=== PATIENT | female | born 1990 | race Caucasian/White ===

== ENCOUNTER → 2017-11-11 | Outpatient (REF) | payer OTHER ==
[2017-11-11 16:03] LABS: CHLAMYDIA DNA AMPLIFICATION NEGATIVE (NEGATIVE); GC DNA AMPLIFICATION NEGATIVE (NEGATIVE)
== END ==
LOC: M LAB REF 13:09
DX: Z34.82 Encounter for supervision of other normal pregnancy, second trimester (principal); Z3A.00 Weeks of gestation of pregnancy not specified
CPT/HCPCS: 87086

== ENCOUNTER → 2017-12-02 | Outpatient (CLI) | payer OTHER | LOC: M LRY 14:03 | DX: Z34.82 Encounter for supervision of other normal pregnancy, second trimester (principal) | CPT/HCPCS: 76811 ==

== ENCOUNTER → 2018-01-08 | Outpatient (CLI) | payer OTHER | LOC: M RAD 09:48 | DX: Z36.89 Encounter for other specified antenatal screening (principal); Z3A.22 22 weeks gestation of pregnancy | CPT/HCPCS: 76816 ==

== ENCOUNTER → 2018-02-06 | Outpatient (CLI) | payer OTHER ==
[2018-02-06 13:25] LABS: HEMATOCRIT 34.7 % (36.0-47.0); MEAN CORPUSCULAR HEMOGLOBIN 30.2 pg (27.0-33.0); MEAN CORPUSCULAR HGB CONC 34.6 g/dl (32.0-36.5); MEAN CORPUSCULAR VOLUME 87.4 fl (80.0-96.0); PLATELET COUNT, AUTOMATED 214 10^3/uL (150-450); RED BLOOD COUNT 3.97 10^6/uL (4.00-5.40); RED CELL DISTRIBUTION WIDTH 12.7 % (11.5-14.5); WHITE BLOOD COUNT 10.4 10^3/uL (4.0-10.0)
[2018-02-06 13:52] LABS: GLUCOSE CHALLENGE TEST 1 HOUR 155 MG/DL (LESS THAN 140)
== END ==
LOC: M SMT 10:55
DX: Z34.82 Encounter for supervision of other normal pregnancy, second trimester (principal); Z36.89 Encounter for other specified antenatal screening
CPT/HCPCS: 82950

== ENCOUNTER → 2018-02-11 | Outpatient (CLI) | payer OTHER ==
[2018-02-11 08:58] LABS: GLUCOSE, FASTING 83 MG/DL (LESS THAN 95)
[2018-02-11 10:08] LABS: 1 HR GLUCOSE 122 MG/DL (LESS THAN 180)
[2018-02-11 11:03] LABS: 2 HR GLUCOSE 94 MG/DL (LESS THAN 155)
[2018-02-11 11:57] LABS: 3 HR GLUCOSE 97 MG/DL (LESS THAN 140)
== END ==
LOC: M LAB 07:56
DX: Z36.89 Encounter for other specified antenatal screening (principal); O99.810 Abnormal glucose complicating pregnancy; Z3A.00 Weeks of gestation of pregnancy not specified
CPT/HCPCS: 82951

== ENCOUNTER 2018-03-20 06:21 | Outpatient (CLI) | payer OTHER | END 2018-03-20 09:07 | disposition home or self-care (01) | LOC: M LDO 06:21 | DX: O26.893 Other specified pregnancy related conditions, third trimester (principal); Z3A.33 33 weeks gestation of pregnancy; Z87.51 Personal history of pre-term labor | CPT/HCPCS: 76815 ==

== ENCOUNTER → 2018-03-26 | Outpatient (REF) | payer OTHER | LOC: M LAB REF 13:19 | DX: O09.213 Supervision of pregnancy with history of pre-term labor, third trimester (principal) ==

== ENCOUNTER → 2018-04-15 | Outpatient (CLI) | payer OTHER ==
[2018-04-15 13:45] LABS: HEMATOCRIT 33.9 % (36.0-47.0); HEMOGLOBIN 11.7 g/dl (12.0-15.5); MEAN CORPUSCULAR HEMOGLOBIN 30.1 pg (27.0-33.0); MEAN CORPUSCULAR HGB CONC 34.5 g/dl (32.0-36.5); MEAN CORPUSCULAR VOLUME 87.1 fl (80.0-96.0); PLATELET COUNT, AUTOMATED 238 10^3/uL (150-450); RED BLOOD COUNT 3.89 10^6/uL (4.00-5.40); RED CELL DISTRIBUTION WIDTH 13.6 % (11.5-14.5); WHITE BLOOD COUNT 12.4 10^3/uL (4.0-10.0)
[2018-04-15 14:01] LABS: ALT/SGPT 18 U/L (12-78); AST/SGOT 12 U/L (7-37); BILIRUBIN,TOTAL 0.3 MG/DL (0.2-1.0); CREATININE FOR GFR 0.53 MG/DL (0.55-1.30); GLOMERULAR FILTRATION RATE > 60.0 (>60); LDH LACTATE DEHYDROGENASE 190 U/L (84-246); URIC ACID 4.9 MG/DL (2.6-6.0)
== END ==
LOC: M SMT 09:29
DX: O13.3 Gestational [pregnancy-induced] hypertension without significant proteinuria, third trimester (principal)
CPT/HCPCS: 84460

== ENCOUNTER 2018-04-18 07:06 | Inpatient (IN) | payer OTHER ==
[2018-04-18] MEDS ORDERED: PENICILLIN G POTASSIUM IV 5 MU in D5W MINI-BAG PLUS 100 ML IV (08:30)
[2018-04-18] MEDS: PENICILLIN G POTASSIUM IV 5 MU in D5W MINI-BAG PLUS 100 ML IV (08:55)
[2018-04-18] MEDS: miSOPROStol 50 MCG 1/2 TAB (S0191) SL (08:55)
[2018-04-18] MEDS ORDERED: **PENDING PCN ENTRY XX (09:00)
[2018-04-18 09:09] LABS: HEMATOCRIT 32.8 % (36.0-47.0); HEMOGLOBIN 11.3 g/dl (12.0-15.5); MEAN CORPUSCULAR HEMOGLOBIN 29.3 pg (27.0-33.0); MEAN CORPUSCULAR HGB CONC 34.5 g/dl (32.0-36.5); PLATELET COUNT, AUTOMATED 237 10^3/uL (150-450); RED BLOOD COUNT 3.86 10^6/uL (4.00-5.40); RED CELL DISTRIBUTION WIDTH 13.4 % (11.5-14.5); WHITE BLOOD COUNT 12.1 10^3/uL (4.0-10.0)
[2018-04-18] MEDS ORDERED: PENICILLIN G POTASSIUM IV 2.5 MU in APPROPRIATE DILUENT 1 EA IV (12:30)
[2018-04-18] MEDS: PENICILLIN G POTASSIUM IV 2.5 MU in APPROPRIATE DILUENT 1 EA IV ×2 (13:02→16:53)
[2018-04-18] MEDS: OXYTOCIN DRIP 30 UNITS in APPROPRIATE DILUENT 1 EA IV (16:24)
[2018-04-18] MEDS: LR 1,000 ML IV (17:58)
[2018-04-19] MEDS ORDERED: FENTANYL 2MCG/ML ROPIVACAINE 0.2% IN 0.9% NACL 200ML IVBAG As Ordered (01:39)
[2018-04-19] MEDS ORDERED: FENTANYL/ROPIVACAINE/NACL BAG 200 ML EPIDURAL (01:56)
[2018-04-19] MEDS ORDERED: EPIDURAL COMMENT XX (01:56)
[2018-04-19] MEDS ORDERED: NALOXONE INJ 0.4 MG/1 ML VIAL (J2310) IV (01:56)
[2018-04-19] MEDS ORDERED: diphenhydrAMINE INJ 50MG/ML VIAL (J1200) IV (01:56)
[2018-04-19] MEDS ORDERED: LACTATED RINGER'S 1000 ML IV (01:56)
[2018-04-19] MEDS ORDERED: ePHEDrine SULFATE 25 MG/5 ML(5MG/ML) SYRINGE IV (01:56)
[2018-04-19] MEDS ORDERED: EPIDURAL/PCA KEYS XX (01:56)
[2018-04-19] MEDS ORDERED: REFRIGERATOR IV KEYS XX (01:56)
[2018-04-19] MEDS ORDERED: ONDANSETRON 4MG/2ML VIAL (J2405) IV ×2 (01:56→05:00)
[2018-04-19] MEDS ORDERED: DIBUCAINE 1% OINTMENT 30GM TOP (05:00)
[2018-04-19] MEDS ORDERED: DOCUSATE SODIUM 100 MG CAP PO (05:00)
[2018-04-19] MEDS ORDERED: IBUPROFEN 800 MG TAB PO (05:00)
[2018-04-19] MEDS ORDERED: ACETAMINOPHEN 500 MG TAB PO (05:00)
[2018-04-19] MEDS: OXYTOCIN DRIP 30 UNITS in APPROPRIATE DILUENT 1 EA IV (05:00)
[2018-04-19] MEDS ORDERED: METHYLERGONOVINE MALEATE 0.2 MG TAB PO (05:00)
[2018-04-19] MEDS: PRENATAL VITAMINS CHEWABLE TABLET PO (08:16)
[2018-04-20] MEDS: RHOGAM 300 MCG (1500 IU) INJ (J2790) IM (07:23)
[2018-04-20] MEDS: PRENATAL VITAMINS CHEWABLE TABLET PO (09:29)
[2018-04-20] MEDS: MEASLES,MUMPS,RUBELLA VACCINE INJ (MMR-II) (90707) SC (11:32)
== END 2018-04-20 12:45 | disposition home or self-care (01) | DRG 775 ==
LOC: M LDI 07:06 → M OBS 04-19 06:58
PROVIDERS: Specialist
PROC: 3E0DXGC Introduction of Other Therapeutic Substance into Mouth and Pharynx, External Approach (ICD-10-PCS; 2018-04-18)
PROC: 10E0XZZ Delivery of Products of Conception, External Approach (ICD-10-PCS; principal; 2018-04-19)
DX: O13.4 Gestational [pregnancy-induced] hypertension without significant proteinuria, complicating childbirth (principal); Z37.0 Single live birth; Z3A.37 37 weeks gestation of pregnancy; O99.820 Streptococcus B carrier state complicating pregnancy

== ENCOUNTER → 2018-05-14 | Outpatient (REF) | payer OTHER | LOC: M SFHCLERA 18:10 | DX: R21 Rash and other nonspecific skin eruption (principal) ==

== ENCOUNTER → 2018-08-26 | Outpatient (REF) | payer OTHER ==
[~2018-08-26] MED LIST: IBUP-1114 PO; MAPA500T2 PO; PRENTAB9 PO
== END ==
LOC: M SFHCLERA 10:30
PROVIDERS: ATTEND Physician Assistant
DX: J02.9 Acute pharyngitis, unspecified (principal)

== ENCOUNTER → 2018-11-26 | Outpatient (REF) | payer OTHER | LOC: M LAB REF 13:13 | PROVIDERS: ATTEND Specialist | DX: Z12.4 Encounter for screening for malignant neoplasm of cervix (principal) ==

== ENCOUNTER 2019-08-29 11:46 | Emergency (ER) | payer OTHER ==
[~2019-08-29] VITALS: Ht 165.1 cm; Wt 65.9 kg
[2019-08-29] MEDS ORDERED: KURV0.15 PO (12:02)
[2019-08-29 12:15] LABS: BASO % 0.2 % (0.0-1.0); EOS % 0.3 % (0.0-3.0); HEMATOCRIT 43.3 % (36.0-47.0); HEMOGLOBIN 15.2 g/dl (12.0-15.5); LYMPH # 0.8 10^3/uL (1.5-5.0); LYMPH % 6.7 % (24.0-44.0); MEAN CORPUSCULAR HEMOGLOBIN 29.5 pg (27.0-33.0); MEAN CORPUSCULAR HGB CONC 35.1 g/dl (32.0-36.5); MEAN CORPUSCULAR VOLUME 83.9 fl (80.0-96.0); MONO # 0.8 10^3/uL (0.0-0.8); MONO % 6.4 % (0.0-5.0); NEUTROPHILS # 10.2 10^3/uL (1.5-8.5); NEUTROPHILS % 86.1 % (36.0-66.0); PLATELET COUNT, AUTOMATED 315 10^3/uL (150-450); RED BLOOD COUNT 5.16 10^6/uL (4.00-5.40); WHITE BLOOD COUNT 11.8 10^3/uL (4.0-10.0)
[2019-08-29 12:45] LABS: ALBUMIN 4.4 GM/DL (3.2-5.2); BILIRUBIN,DIRECT 0.2 MG/DL (0.0-0.2); BILIRUBIN,TOTAL 0.8 MG/DL (0.2-1.0); TOTAL PROTEIN 7.9 GM/DL (6.4-8.2)
[2019-08-29] MEDS ORDERED: ONDANSETRON 4MG/2ML VIAL (J2405) IV ONE (13:00)
[2019-08-29] MEDS ORDERED: NS 1,000 ML IV ONE (13:00)
[2019-08-29 14:47] VITALS: BP 126/82
== END 2019-08-29 14:49 | disposition home or self-care (01) ==
LOC: M ED 11:46
DX: R80.9 Proteinuria, unspecified (principal); R10.9 Unspecified abdominal pain; R11.2 Nausea with vomiting, unspecified; R51 Headache; Z79.3 Long term (current) use of hormonal contraceptives
CPT/HCPCS: 80047; 80076; 81001; 83690; 84702; 85025; 96361; 96374; 99284; J2405

== ENCOUNTER → 2019-09-01 | Outpatient (REF) | payer OTHER ==
[~2019-09-01] MED LIST changes: +KURV0.15 PO
== END ==
LOC: M LAB REF 16:52
PROVIDERS: ATTEND Physician Assistant
DX: R80.0 Isolated proteinuria (principal)